=== PATIENT | female | born 1955 | race Caucasian/White ===

== ENCOUNTER 2017-02-02 08:50 | Emergency (ER) | payer MEDICARE, OTHER ==
--- NOTE | ~2017-02-02 | CR172 ---
[facility] A Service of [facility] RADIOLOGY TEXT RESULTS PATIENT: MINISTERIO REYNOLDS LOCATION: [place] : 55 UNIT #: [id number] AGE: [address]: Kamla Timmons APRN SEX: F ORDER DR: [id number] [facility] [address] [place], [place] [address] [id number] E MR#: [id number] Acc #: [id number] NAME: MINISTERIO REYNOLDS. : 1955 SEX: F STUDY DATE/TIME: 02/02/2017 09:36 UNIT: [facility] ROOM: STUDY DESCRIPTION: CR Knee 3 Views Lt Attending Physician: Kamla Timmons A.P.R.N. Ordering Physician: Ed Doctor [id number] [facility] Primary Care Physician: Radha Fenton M.D. MEDICAL IMAGING REPORT This report is preliminary unless electronic signature is present EXAM Left knee 3 views 02/02/2017 0936 hours HISTORY Patient's knee popped out of place last night causing patient to fall and injure left foot. Knee pain and foot pain since last night. COMPARISON Left knee 04/11/2016. FINDINGS AP, lateral and sunrise views demonstrate no knee joint effusion. There is a single bone screw through the patella unchanged from prior study. There is mild spurring at the patellofemoral articulation. There is mild joint space loss and spurring in the medial and lateral compartments. These findings appear stable. There is no acute fracture. IMPRESSION 1. Stable bone screw at prior healed patellar fracture. 2. No joint effusion or acute fracture. There is mild joint space loss and spurring in all 3 compartments of the knee. Dictated by... Brinda Balbuena M.D. THIS IS AN ELECTRONICALLY VERIFIED REPORT Brinda Balbuena M.D. at 02/02/2017 2:30 PM MOLYL/simon TD: 02/02/2017 10:53 JOB #: [id number] [facility] A Service of [facility] & [facility] RADIOLOGY TEXT RESULTS PATIENT: MINISTERIO REYNOLDS LOCATION: [facility] #: [id number] : 55 UNIT #: [id number] AGE: [address]: Kamla Timmons APRN SEX: F ORDER DR: MEDICAL IMAGING REPORT Page 1 of 1 COPY
--- NOTE | ~2017-02-02 | CR126 ---
[facility] A Service of [facility] RADIOLOGY TEXT RESULTS PATIENT: MINISTERIO REYNOLDS LOCATION: [place] : 55 UNIT #: [id number] AGE: [address]: Kamla Timmons APRN SEX: F ORDER DR: [id number] [facility] [address] [place], [place] [address] [id number] E MR#: [id number] Acc #: [id number] NAME: MINISTERIO REYNOLDS. : 1955 SEX: F STUDY DATE/TIME: 02/02/2017 09:30 UNIT: [facility] ROOM: STUDY DESCRIPTION: CR Foot Complete Min 3 View Lt Attending Physician: Kamla Timmons A.P.R.N. Ordering Physician: Ed Doctor [id number] [facility] Primary Care Physician: Radha Fenton M.D. MEDICAL IMAGING REPORT This report is preliminary unless electronic signature is present EXAM Left foot 3 views, 02/02/2017 09:30 hours HISTORY Patient states her knee popped out of joint last night causing her to injure her foot. Foot and knee pain since last night. History of breast carcinoma. COMPARISON None FINDINGS AP, lateral and oblique views demonstrate dorsal soft tissue swelling over the distal metatarsal region. There are transverse minimally angulated fractures of the distal aspect of the third and fourth metatarsals which are acute. There is lateral dislocation of the fifth toe at the metatarsophalangeal joint with a very tiny bone fragment present, likely a small fracture fragment from either the distal aspect of the fifth metatarsal or the proximal aspect of the proximal phalanx. There is degenerative change with bunion at the first metatarsophalangeal joint. IMPRESSION There are acute minimally angulated fractures of the distal third and fourth metatarsals. There is dislocation of the fifth toe in the lateral direction at the metatarsophalangeal joint with a tiny bone fragment present which could represent a fragment from the distal fifth metatarsal or the proximal aspect of the proximal phalanx of the fifth toe. STAT * RESULT Dictated by... [facility] A Service of [facility] RADIOLOGY TEXT RESULTS PATIENT: MINISTERIO REYNOLDS LOCATION: [facility] : 55 UNIT #: [id number] AGE: [address]: Kamla Timmons APRN SEX: F ORDER DR: Bridna Balbuena M.D. THIS IS AN ELECTRONICALLY VERIFIED REPORT Brinda Balbuena M.D. at 02/02/2017 2:29 PM Demetri TD: 02/02/2017 09:55 JOB #: [id number] MEDICAL IMAGING REPORT Page 1 of 1 COPY
--- NOTE | ~2017-02-02 | CR126 ---
[facility] A Service [facility] RADIOLOGY TEXT RESULTS PATIENT: MINISTERIO REYNOLDS LOCATION: [facility] : 55 UNIT #: [id number] AGE: [address]: Kamla Timmons APRN SEX: F ORDER DR: [id number] [facility] [address] [place], [place] [address] [id number] E MR#: [id number] Acc #: [id number] NAME: MINISTERIO REYNOLDS. : 1955 SEX: F STUDY DATE/TIME: 01/03/2017 UNIT: [facility] ROOM: STUDY DESCRIPTION: CR Foot Complete Min 3 View Lt Attending Physician: Kamla Timmons A.P.R.N. Ordering Physician: Ed Doctor [id number] [facility] Primary Care Physician: Radha Fenton M.D. MEDICAL IMAGING REPORT This report is preliminary unless electronic signature is present EXAM Left foot 3 views 02/02/2017, 1218 hours HISTORY History of acute foot fracture or dislocation fifth toe, post reduction films. COMPARISON 02/02/2017 at 09:30 hours FINDINGS AP, lateral and oblique views demonstrate no change in an acute transverse fractures of the distal fourth and fifth metatarsals. The dislocation of the fifth toe has been reduced. There is a single tiny bony ossicle along the medial aspect of the fifth metatarsal-phalangeal joint which could represent a small fracture fragment or chronic change. No fifth toe fracture is seen. IMPRESSION 1. Interval reduction of fifth toe dislocation with anatomic alignment. No acute fractures seen at the fifth toe. 2. No change in transverse fractures of the distal third and fourth metatarsals which are also acute. Dictated by... Brinda Balbuena M.D. THIS IS AN ELECTRONICALLY VERIFIED REPORT Brinda Balbuena M.D. at 02/02/2017 2:30 PM Coty TD: 02/02/2017 13:06 [facility] A Service [facility] RADIOLOGY TEXT RESULTS PATIENT: MINISTERIO REYNOLDS LOCATION: [facility] : 55 UNIT #: [id number] AGE: [address]: Kamla Timmons APRN SEX: F ORDER DR: MICHAEL #: [id number] MEDICAL IMAGING REPORT Page 1 of 1 COPY
[~2017-02-02 08:50] MED LIST: ADVAIR 2501 DISK W/D; ALBUTEROL17 GM; AVELOX400 MG; DEPAKOTE; LORTAB 10-5001 EACH PO; LORTAB 5/500 TA1 TA1 PO; MAXZIDE 75/50 T1 TAB; SEROQUEL; ZANTAC
== END 2017-02-02 12:50 | disposition home or self-care (01) ==
LOC: CFTX 08:50 → CED 08:50 → CFTX 10:15
DX: S92.332A Displaced fracture of third metatarsal bone, left foot, initial encounter for closed fracture (principal); S93.115A Dislocation of interphalangeal joint of left lesser toe(s), initial encounter; Z88.0 Allergy status to penicillin; F17.200 Nicotine dependence, unspecified, uncomplicated; X58.XXXA Exposure to other specified factors, initial encounter; Y92.009 Unspecified place in unspecified non-institutional (private) residence as the place of occurrence of the external cause
CPT/HCPCS: 29405; 73562; 73630; 96372; 99283; J3360

== ENCOUNTER 2017-03-31 14:17 | Emergency (ER) | payer MEDICARE, OTHER ==
[~2017-03-31] VITALS: Ht 160 cm; Wt 54.4 kg
--- NOTE | ~2017-03-31 | CT2 ---
[facility] A Service of [facility] RADIOLOGY TEXT RESULTS PATIENT: MINISTERIO REYNOLDS LOCATION: [facility] : 55 UNIT #: [id number] AGE: [address]: Meron Gonzalez APRN SEX: F ORDER DR: [id number] [facility] [address] [place], [place] [address] [id number] E MR#: [id number] Acc #: [id number] NAME: MINISTERIO REYNOLDS. : 1955 SEX: F STUDY DATE/TIME: 03/31/2017 16:53 UNIT: [facility] ROOM: STUDY DESCRIPTION: CT Abd and Pelv W Cont Attending Physician: Meron Gonzalez A.P.R.N. Ordering Physician: Eliud Heck M.D. Primary Care Physician: Radha Fenton M.D. MEDICAL IMAGING REPORT This report is preliminary unless electronic signature is present EXAM CT abdomen and pelvis HISTORY Right hip, flank pain, fall last week. Right front and back x1 week, history hypertension, smoker 1 pack per day. Prior history includes bipolar, breast cancer, gastroesophageal reflux disease, bilateral mastectomy, tubal. FINDINGS CT of the abdomen and pelvis performed with intravenous administration of 100 mL Isovue-370. Enteric contrast not administered. No prior imaging of abdomen or pelvis for comparison. This CT examination was performed with one or more of the following radiation dose reduction techniques: automatic exposure control, adjustment of mA and/or kV according to patient size, and iterative reconstruction. Lung bases show emphysema. Calcified granulomata at the right lung base. Heart within normal limits of size. The liver, gallbladder, spleen, pancreas are remarkable. The right adrenal gland shows relatively hypodense thickening of the adrenal body measuring about 1.2 cm transversely. It does not meet criteria for adenoma on basis of this examination, but I favor adenoma given low density. There is a 1.4 cm x 1.9 cm relatively hypodense nodule in the left adrenal body also not meeting CT criteria for adenoma. 3 mm nonobstructing mid to lower pole calculus right kidney. Calcifications in the central left kidney favored to be renovascular. No acute renal findings. CT PELVIS: No inguinal adenopathy. There is moderate urinary bladder distension without focal mural abnormality or obstructing process seen. Presumed physiologic. Correlate clinically. Uterus unremarkable. Bilateral tubal ligation clips. Cystic structure in the left ovary measuring 5.5 cm x 3.8 cm x 5.7 cm. No free fluid in the pelvis. No pelvic or retroperitoneal adenopathy. There are some small less than [address] [facility] A Service of [facility] RADIOLOGY TEXT RESULTS PATIENT: MINISTERIO REYNOLDS LOCATION: [facility] : 55 UNIT #: [id number] AGE: [address]: Meron Gonzalez APRN SEX: F ORDER DR: in short axis lymph nodes in the right periaortic region of lower thorax. The distal esophagus, stomach, small bowel unremarkable. Appendix normal. Colon unremarkable. No abnormal fluid collections in the abdomen or pelvis. Thoracic aortic aneurysm incompletely visualized. The distal thoracic aorta measures up to about 4.6 cm x 4.4 cm. Irregular mural thrombus. Along the anterior and left anterolateral aspect of the distal descending thoracic aorta. There is subtle relatively increased density material. This is a nonspecific finding. It could simply represent evolving mural thrombus. The appearance raises concern for potential intramural hematoma (in the spectrum of aortic dissection) or potentially evolving products of hemorrhage from aneurysm leakage. I have no prior studies for comparison. There is extensive atherosclerotic disease. The celiac axis is patent. The superior mesenteric artery is patent. The bilateral renal arteries are patent with severe proximal renal artery atherosclerotic disease. There is an infrarenal abdominal aortic aneurysm which has a somewhat lobulated configuration and measures up to 4.7 cm x 4.9 cm. It terminates above the aortic bifurcation. There is extensive iliac arterial atherosclerotic disease. There is mild common femoral and proximal superficial femoral artery atherosclerotic disease. The bony structures show chronic moderate compression deformity T12 vertebral body. No clearly acute-appearing bony abnormality. IMPRESSION 1. Abnormal examination. Findings discussed with ER staff at time of this dictation. Patient has thoracic and abdominal aortic aneurysms. The thoracic aneurysm, incompletely visualized, measures up to 4.6 cm x 4.4 cm. In the distal descending thoracic aorta along its anterior and left anterolateral aspect, there is a rim of relatively increased density material. This is smoothly contoured. The differential diagnosis for this appearance could represent intramural hematoma which is in the same spectrum as aortic dissection. Please note I see no free dissection flap. The possibility of organizing thrombus status post aneurysm leakage is in the differential diagnosis. Consider vascular surgery consultation. The infrarenal abdominal aortic aneurysm measures up to 4.7 cm x 4.9 cm. It has a somewhat lobulated configuration. I see no evidence of recent leak at this location. There is extensive atherosclerotic disease elsewhere with moderate to severe narrowing in the proximal renal arteries and at least moderate disease in the iliac arterial segments. 2. There is a cystic lesion in the left ovary measuring up to 5.7 cm in diameter. It is of uniform water density and probably represents a large simple ovarian cyst. In light of size and patient's age, full characterization with pelvic ultrasound when clinically appropriate is recommended. Gynecologic/surgical consultation is also recommended. Malignant cystic adnexal neoplasm is not excluded. 3. Nonobstructing 3 mm right renal calculus. No acute renal findings. 4. Bilateral hypodense areas in the adrenal bodies measuring up to 1.2 cm [facility] A Service of [facility] RADIOLOGY TEXT RESULTS PATIENT: MINISTERIO REYNOLDS LOCATION: [facility] #: [id number] : 55 UNIT #: [id number] AGE: [address]: Meron Gonzalez APRN SEX: F ORDER DR: on right and 1.9 cm on left. Bilateral adenomata favored but not clearly adenomata on basis of this examination. In absence of prior characterization, they are best further evaluated with adrenal protocol MRI or CT when clinically appropriate for patient. 5. No acute abnormality along alimentary canal. 6. No acute-appearing bony abnormality. Degenerative changes. Moderate compression deformity T12 vertebral body. Dictated by... Crow Toribio M.D. THIS IS AN ELECTRONICALLY VERIFIED REPORT Crow Toribio M.D. at 04/02/2017 10:02 PM KENTON/simon TD: 04/01/2017 06:43 JOB #: [id number] MEDICAL IMAGING REPORT Page 1 of 1 COPY
[2017-03-31 16:00] LABS: BASOPHIL# 0.1 X10e3 (0-0.3); BASOPHIL% 0.9 % (0-2.5); EOSINOPHIL# 0.5 X10e3 (0-0.7); EOSINOPHIL% 4.2 % (0.0-7.0); HEMATOCRIT 43.9 % (35.0-45.0); HEMOGLOBIN 14.8 gm/dL (12.0-16.0); LYMPHOCYTE# 2.6 X10e3 (1.0-3.5); LYMPHOCYTE% 20.4 % (17.0-45.0); MEAN CELL VOLUME 89.9 FL (83-96); MEAN CORPUSCULAR HEMOGLOBIN 30.3 PG (28-34); MEAN CORPUSCULAR HGB CONC 33.7 g/dL (30-36); MEAN PLATELET VOLUME 7.8 FL (6.5-11.5); MONOCYTE# 1.1 X10e3 (0-1.0); MONOCYTE% 8.9 % (3.0-12.0); NEUTROPHIL# 8.4 X10e3 (1.5-7.1); NEUTROPHIL% 65.6 % (40-75); PLATELET COUNT 347 X10e3 (140-420); RED BLOOD COUNT 4.89 X10e (3.90-5.30); RED CELL DISTRIBUTION WIDTH 13.9 % (11.0-15.5); WHITE BLOOD COUNT 12.8 X10e3 (4.0-10.5)
[2017-03-31 16:04] LABS: DIFF IND NO
[2017-03-31 16:24] LABS: ALBUMIN SERUM 4.5 g/dL (3.5-5.0); BILIRUBIN,TOTAL 0.8 mg/dL (0.2-2.0); BUN/CREATININE RATIO 22.5; CALCIUM SERUM 9.7 mg/dL (8.4-10.2); CREATININE SERUM 0.8 mg/dL (0.6-1.4); GLOM FILT RATE Estimated 79.6 mL/min (>60); PROTEIN TOTAL SERUM 8.2 g/dL (6.0-8.3)
[2017-03-31 17:22] LABS: URINE SOURCE CLEAN CATCH
[2017-03-31 17:24] LABS: URINE APPEARANCE CLEAR; URINE BILIRUBIN NEG (NEG); URINE BLOOD NEG (NEG); URINE COLOR YELLOW; URINE GLUCOSE NEG (NEG); URINE KETONE NEG (NEG); URINE LEUKOCYTE ESTERASE NEG (NEG); URINE NITRATE NEG (NEG); URINE PROTEIN TRACE (NEG); URINE SPECIFIC GRAVITY 1.007 (1.003-1.035); URINE UROBILINOGEN 0.2 MG/DL (NEG)
[2017-03-31 17:25] LABS: CULTURE INDICATED? NO
== END 2017-03-31 22:38 | disposition hospice, home (50) ==
LOC: CFTX 14:17 → CED 14:17 → CFTX 15:21 → CED 15:21
PROVIDERS: Nurse Practitioner
DX: I71.2 Thoracic aortic aneurysm, without rupture (principal); I72.2 Aneurysm of renal artery; E27.8 Other specified disorders of adrenal gland; I10 Essential (primary) hypertension; F17.210 Nicotine dependence, cigarettes, uncomplicated; J45.909 Unspecified asthma, uncomplicated; K21.9 Gastro-esophageal reflux disease without esophagitis; F31.9 Bipolar disorder, unspecified; Z85.3 Personal history of malignant neoplasm of breast; W18.30XA Fall on same level, unspecified, initial encounter; Y92.009 Unspecified place in unspecified non-institutional (private) residence as the place of occurrence of the external cause
CPT/HCPCS: 36415; 74177; 80053; 81003; 85025; 96374; 96375; 99284; J2270; J2405; Q9967